=== PATIENT | male | born 1960 | race African-American/Black ===

== ENCOUNTER 2021-04-06 07:41 | Emergency (ER) | payer BC ==
[~2021-04-06] VITALS: Ht 172.7 cm; Wt 81.8 kg
--- NOTE | 2021-04-06 07:43 | PHYS DOC ---
General Adult HPI: HPI: Patient is a 60 year old male brought in by EMS for evaluation of generalized fatigue and weakness. He reports that about 6 days ago he began experiencing a cough that was dry, now with white sputum, as well as generalized malaise and fatigue, decreased appetite. 4 days ago he was diagnosed with Covid. He repo rts that the generalized fatigue and weakness has become worse over the past 3 days. He reports that he has increased urination. He reports that he feels so weak that he is unable to get up and walk without difficulty. He denies chest pain or dyspnea. He denies headache, sore throat, congestion. He denies abdominal pain or diarrhea. He reports mild nausea as it pertains to his coughing and sensation of gagging. Denies vomiting. Denies hemoptysis. He denies any focal weakness, numbness or tingling. He is not vaccinated against Covid. He works at the [employer] in [place], [place], and he reports that multiple other employees are sick with Covid as well, many of which are also unvaccinated. Review of Systems: Review of Systems: Constitutional: Denies fever. He has had mild chills, generalized malaise and fatigue. Eyes: Denies change in visual acuity. [] HENT: Denies nasal congestion or sore throat. [] Respiratory: Reports cough with white sputum. Denies dyspnea. Cardiovascular: Denies chest pain or edema. [] GI: Denies abdominal pain, vomiting or diarrhea. Reports mild nausea. : Urinary frequency. Denies gross hematuria or dysuria. Musculoskeletal: Reports diffuse myalgias and subjective muscle weakness. Integument: Denies rash. [] Neurologic: Denies headache, focal weakness or sensory changes. [] Psychiatric: Denies depression or anxiety. [] Heart Score: C/O Chest Pain: No Risk Factors: Risk Factors: DM, Current or recent (<one month) smoker, HTN, HLP, family history of CAD, obesity. Risk Scores: Score 0 - 3: 2.5% MACE over next 6 weeks - Discharge Home Score 4 - 6: 20.3% MACE over next 6 weeks - Admit for Clinical Observation Score 7 - 10: 72.7% MACE over next 6 weeks - Early Invasive Strategies Physical Exam: PE: Constitutional: Well developed, well nourished, no acute distress, non-toxic appearance. [] HENT: Normocephalic, atraumatic, oropharynx is patent and clear, mucous membranes are moist Eyes: Sclera are clear and anicteric Neck: Normal range of motion, no tenderness, supple, no stridor. Achy midline, no JVD, no meningeal Cardiovascular:Heart rate regular rhythm, +2 radial and +2 posterior tibial pulses bilaterally Lungs & Thorax: Mildly diminished breath sounds in bilateral bases, no rales, rhonchi or wheezes. Speaks in full and clear senses. No tachypnea or retractions. No stridor. Abdomen: Abdomen soft, nondistended, nontender to palpation Skin: Warm, dry, no erythema, no rash. [] Back: No tenderness, no CVA tenderness. [] Extremities: No tenderness, no cyanosis, no clubbing, ROM intact, no edema. No calf tenderness. No limb deformities. No peripheral edema. Neurologic: Alert and oriented X 3, normal motor function, normal sensory function, no focal deficits noted. No facial asymmetry. 5 out of 5 motor strength all 4 extremities, sensation is grossly intact speech is clear and fluent. Psychologic: Fecht is flat, he is cooperative [] EKG: EKG: EKG is interpreted at 0822 Rhythm is sinus Rate is 87 bpm [place] is normal No STEMI Radiology/Procedures: Radiology/Procedures: [] Course & Med Decision Making: Course & Med Decision Making Pertinent Labs and Imaging studies reviewed. (See chart for details) IV fluids are given. P.o. Tessalon and IV Zofran are given. He is resting comfortably. No evidence of high respiratory distress or hypoxia. Oxygen saturation is stable. Blood pressure is stable. He denies chest pain or dyspnea. No indication for emergent imaging, no indication for further invasive exams. He does manifest evidence of some mild renal insufficiency and dehydration. He is unaware of what his baseline creatinine is. He has not seen his primary care physician in over a year, I did explain that he should follow- up to compare previous labs. There is currently no indication for hospitalization based on his current clinical presentation. I explained that he should stay well-hydrated, drink plenty of fluids, get plenty of rest. He is to continue self-isolation measures. I recommend he get a pulse oximeter, and if he develops any chest pain or shortness of breath, evidence of hypoxia, he may return to the ER immediately. Strict return precautions are given. He verbalizes understanding. Ruben Disclaimer: Ruben Disclaimer: This electronic medical record was generated, in whole or in part, using a voice recognition dictation system. Departure Departure Impression: Primary Impression: COVID-19 Additional Impressions: Fatigue Generalized weakness Dehydration Disposition: 01 HOME / SELF CARE / HOMELESS Condition: STABLE Patient Instructions: Dehydration, Adult, Fatigue Additional Instructions: You have been tested for or diagnosed with COVID-19. It is an infection caused by a new type of coronavirus. COVID-19 will cause cold-like or mild flu symptoms in most. It can cause more severe symptoms like problems breathing in some. There is no treatment for COVID-19. The body will clear the infection over time. Self-care will help to ease discomfort. Steps to Take: Self-Care Rest as needed. Healthy habits may help you feel better. Steps include: Choose healthy foods including fruits and vegetables. Drink water throughout the day. Get plenty of sleep each night. If you smoke, try to quit. It may ease breathing. Avoid alcohol. Keep Others Healthy The virus can spread to others. Droplets are released every time you sneeze or cough. The droplets can get into the mouth, nose, or eyes of people near you and lead to infection. To lower the chances of spreading COVID-19 to others: Stay at home until your doctor has said it is safe to leave. If you tested positive this will mean staying isolated until both of the following are true: At least 7 days have passed since the start of illness. You are free of fever for at least 72 hours without the use of medicine. During this time: - Avoid public areas, events, or transportation. Do not return to work or school until your doctor has said it is safe to do so. - Call ahead if you need to go to a medical center. Let them know you may have COVID-19. It will help them guide you where to go. They may also ask you to wear a facemask when you come to the office. - If you call for emergency medical services, let them know you may have COVID- 19. While at home: - Try to avoid close contact with others. Stay about 6 feet away. - If possible, spend most of your time in a separate room from others. - Use a face mask if you will be in close contact with others such as sharing a room or vehicle. - Have someone wipe down common surfaces in the home. Use household survey compiler every day on areas like doorknobs, counters, or sinks. - Cough or sneeze into a tissue. Throw the tissue away right after use. If a tissue is not available, cough or sneeze into your elbow. - Wash your hands often. Wash them after sneezing or coughing. Use soap and water and wash for at least 20 seconds. Alcohol based hand pipe cleaner can be used if soap and water is not available. - Do not prepare food for others. Avoid sharing personal items like forks, spoons, or toothbrushes. - Avoid close contact with pets while you are sick. There is no evidence of the virus passing to pets. This is a safety step until more is known about this virus. Isolation can be frustrating. Social interaction can help. Keep in touch with friends and family through phone and tech options. You can still interact with others in your home, just keep a safe distance of about 6 feet. Follow-up: Your doctors office will check in with you to see if there are any changes in your health. You may be asked to keep track of symptoms to share with them. They will also let you know when you are clear to be in public again. Problems to Look Out For: Contact your doctor if your recovery is not going as you expect. Get emergency care if you have problems such as: - Trouble breathing - Nonstop chest pain or pressure - Changes in awareness, confusion, or problems waking - Lips or face have bluish color - Worsening of symptoms If you think you have an emergency, call for emergency medical services right away. As taken from [facility] Please make sure you stay well-hydrated, drink plenty of clear fluids. You may take [id number] Tylenol and/or ibuprofen for pain or fever. Use the prescribed medication as needed/as directed. Return to the ER for chest pain, shortness of breath, if your oxygen level stays persistently below 90%, if you have severe abdominal pain, become dehydrated from refractory vomiting, start vomiting blood if you develop any focal weakness, if you are acutely injured or sustained any trauma or for any other concerns. You have Covid, and your symptoms are consistent with a COVID-19 infection. You need to continue to quarantine at home, along with any household members or close contacts. Please contact your primary care physician for follow-up. Your kidney function demonstrates that your kidneys are working at the upper limits of normal, make sure you contact your doctor to compare what your previous laboratory exams were, and follow-up on this to make sure that your kidneys are still functioning appropriately. Scripts Benzonatate (BENZONATATE) 200 Mg Capsule 1 CAP PO PRN TID PRN for cough, #20 CAP 0 Refills Prov: JAVI ZIMMER DO 04/06/21 Ondansetron Hcl (ZOFRAN) 4 Mg Tablet 4 MG PO PRN TID PRN for VOMITING, #20 TAB nausea/vomiting Prov: JAVI ZIMMER DO 04/06/21 JAVI ZIMMER DO Apr 06, 2021 07:43
[2021-04-06] MEDS ORDERED: ONDANSETRON PF 4 MG/2 ML VIAL. ONE (08:13)
[2021-04-06] MEDS ORDERED: ONDANSETRON PF 4 MG/2 ML VIAL. IVP ONE (08:30)
[2021-04-06] MEDS ORDERED: BENZONATATE 100 MG CAPSULE. PO ONE (08:30)
[2021-04-06] MEDS ORDERED: IV NORMAL SALINE 1000ML BAG 1,000 ML IV ONE (08:30)
--- NOTE | 2021-04-06 08:37 | EKG ---
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
[2021-04-06 08:42] LABS: CALCIUM 8.2 mg/dL (8.5-10.1); CREATININE 1.6 mg/dL (0.7-1.3); GFR 53.6; POTASSIUM 4.4 mmol/L (3.5-5.1)
[2021-04-06 08:44] LABS: BASO % 1 % (0-3); EOS % 0 % (0-3); HEMATOCRIT 44.9 % (39.0-53.0); HEMOGLOBIN 14.8 g/dL (13.0-17.5); LYMPH # 0.4 x10^3/uL (1.0-4.8); LYMPH % 10 % (24-48); MEAN CORPUSCULAR HEMOGLOBIN 32 pg (25-35); MEAN CORPUSCULAR HGB CONC 33 g/dL (31-37); MEAN CORPUSCULAR VOLUME 97 fL (79-100); MONO # 0.3 x10^3/uL (0.0-1.1); MONO % 8 % (0-9); NEUT # 3.5 x10^3/uL (1.8-7.7); NEUT % 82 % (31-73); PLATELET COUNT 83 x10^3/uL (140-400); RED BLOOD COUNT 4.65 x10^6/uL (4.30-5.70); RED CELL DISTRIBUTION WIDTH 12.8 % (11.5-14.5); WHITE BLOOD COUNT 4.3 x10^3/uL (4.0-11.0)
[2021-04-06 08:47] LABS: ALBUMIN 3.1 g/dL (3.4-5.0); ALBUMIN/GLOBULIN RATIO 0.7 (1.0-1.7); BILIRUBIN,URINE SMALL (NEG); CLARITY,URINE CLEAR; COLOR,URINE AMBER; MAGNESIUM 2.6 mg/dL (1.8-2.4); NITRITE,URINE NEGATIVE (NEG); PH,URINE 5.5 (<5.0-8.0); PHOSPHORUS 2.8 mg/dL (2.6-4.7); PROTEIN,URINE >=300 mg/dL (NEG-TRACE); TOTAL BILIRUBIN 1.1 mg/dL (0.2-1.0); TOTAL PROTEIN 7.5 g/dL (6.4-8.2)
[2021-04-06 09:11] LABS: GRANULAR CASTS,URINE MANY /HPF
[2021-04-06 09:13] LABS: RBC,URINE RARE /HPF (0-2)
[2021-04-06 09:16] LABS: BACTERIA,URINE FEW /HPF (0-FEW)
[2021-04-06] MEDS ORDERED: ONDA4TAB7 PO (10:08)
[2021-04-06] MEDS ORDERED: BENZ200C47 PO (10:08)
[2021-04-06 10:22] VITALS: BP 113/59
[2021-04-08] MEDS ORDERED: BRIM5DRO2 OP (16:50)
== END 2021-04-06 11:06 | disposition home or self-care (01) ==
LOC: ER 07:41
DX: U07.1 COVID-19 (principal); R53.83 Other fatigue; R53.1 Weakness; E86.0 Dehydration
CPT/HCPCS: 36415; 80053; 81001; 82550; 83735; 84100; 85025; 93005; 96361; 96374; 99285; J2405; J7030